=== PATIENT | male | born 1935 | race Caucasian/White ===

== ENCOUNTER 2017-11-10 10:07 | Inpatient (IN) | payer MEDICARE ==
[~2017-11-10] VITALS: Ht 177.8 cm; Wt 94.5 kg
[2017-11-10] VITALS (14 sets, daily range): BP systolic 94–125; BP diastolic 66–80
[~2017-11-10 10:07] MED LIST: ASPERCREME 10% EX; BAYER ASPIRIN325 MG PO; BIOTIN FORTE5 MG PO; BISAC-EVAC5 MG OR; BL POTASSIUM99 MG OR; BORON3 MG PO; CHILD ASA81 MG OR; CHROMIUM OR; COUMADIN5 MG PO; DEPO-MEDROL80 MG/ML IM; DIGOXIN0.25 MG PO; FLEXERIL5 M1 PO; FOLIC ACID1 MG PO; GLIMEPIRIDE2 MG PO; GLYB/METFO5 MG/500 M OR; HYDROCHLOROT25 MG PO; HYDROCO/APAP1 TA9 PO; INOSITOL650 MG OR; JANUVIA100 MG PO; JANUVIA50 MG OR; KETOROLAC60 MG/2 ML IM; LANTUS SOLOSTAR SC; LANTUS100 MG/ML; LISINOPRIL10 MG PO; LISINOPRIL20 MG PO; LISINOPRIL40 MG PO; LOPRESSOR 550 MG/TAB PO; LOPRESSOR25 MG PO; LORCET 5-325 MG1 TAB PO; LUMITENE30 MG OR; MAGNESIUM500 MG OR; MEDDOSEPAK PO; METAMUCIL1.7 G1 OR; METFORMIN1000 MG PO; METFORMIN500 MG PO; METOPROLOL25 M1 OR; METOPROLOL50 MG PO; MIRALAX3350 NF PO; MOLYBDENUM OR; MULTIVITAMI1 PO; NIACIN250 M1 OR; PERCOCET 5/321 COMBO PO; PERCOCET1 TA4 PO; PLAVIX75 MG OR; PRILOSEC20 MG PO; SOLU-MEDROL125 MG IM; STOOL SOFTNR100 M2 PO; VITAMIN B-12100 MCG OR; VITAMIN B-122500 MCG SL; VITAMIN B-1250 MG OR; VITAMIN B6250 MG OR; VITAMIN D31000 UNIT OR; ZOCOR40 MG OR
--- NOTE | 2017-11-10 10:10 | NUR ---
Pt ambulated to rooM # 15 with slow steady gait. Refused w/c. Pt placed on cardiac, SA02, and BP monitors.
[2017-11-10] MEDS ORDERED: ADULT ASPIRIN R81 MG PO (10:24)
[2017-11-10] MEDS ORDERED: LANTUS100 UNIT/M SC (10:27)
[2017-11-10] MEDS ORDERED: ATORVASTATIN CA20 MG PO (10:28)
[2017-11-10] MEDS ORDERED: FERRAPLUS 90 PO (10:29)
--- NOTE | 2017-11-10 10:29 | NUR ---
PT C/O IRREG HR. SENT OVER AFTER APPT WITH [facility]. DENIES PAIN. DENIES SOB. STATES HE RAN OUT OF MEDS BUT STARTED THEM BACK TODAY. STATES [facility]O CHANGED ALMOST ALL MEDS TODAY AT OFFICE VISIT.
[2017-11-10] MEDS ORDERED: MAGNESIUM 250 M1 TAB PO (10:30)
--- NOTE | 2017-11-10 10:45 | NUR ---
CONSULTED DR GONZÁLES TO VERIFY MEDICATION ORDERED. EDP STATED TO GO AHEAD AND GIVE LOPRESSOR 2.5MG WITH BP OF 116/75 & HR OF 139. OTHER 2.5 MG HELD UNTIL VERIFY PTS HR/BP WNL.
[2017-11-10 10:46] LABS: HEMATOCRIT 40.1 % (39.0-50.0); HEMOGLOBIN 13.5 g/dl (14.0-18.0); IMMATURE GRANULOCYTES 0.2 % (0.0-1.0); MEAN CELL VOLUME 97.6 fL CALC (80.0-100.0); MEAN CORPUSCULAR HGB 32.8 pG CALC (26.0-32.0); MEAN CORPUSCULAR HGB CONC 33.7 g/L CALC (32.0-36.0); NEUT# 2.63 thou/uL (1.82-7.42); RED BLOOD COUNT 4.11 mill/uL (4.70-6.10)
[2017-11-10 11:03] LABS: BILIRUBIN, TOTAL 0.5 mg/dL (0.0-1.4); CREATININE 1.6 mg/dL (0.7-1.3); TOTAL PROTEIN 7.6 g/dL (6.3-8.2)
[2017-11-10 11:13] LABS: POTASSIUM 5.2 mmol/l (3.5-5.1)
--- NOTE | 2017-11-10 11:14 | NUR ---
2.5MG LOPRESSOR GIVEN. HR 137, BP 109/67
--- NOTE | 2017-11-10 11:53 | NUR ---
2ND IV ESTABLISHED. PT MEDICATED. PT DENIES SRUTHI. DENIES SOB. IN ROOM ADVISING PT/ OF TEST RESULTS & POC
--- NOTE | 2017-11-10 12:03 | NUR ---
HAS PTS WATCH. PT FIGHTING ON THE PHONE WITH HIS BANK.
--- NOTE | 2017-11-10 12:48 | NUR ---
CALLED PHARMACY TO REVIEW CARDIZEM ORDER.
--- NOTE | 2017-11-10 13:41 | NUR ---
WAITING ON DR STEIN TO COME SEE PT IN ER.
--- NOTE | 2017-11-10 13:55 | NUR ---
DR STEIN @ BEDSIDE WITH PT/
--- NOTE | 2017-11-10 14:13 | NUR ---
PT PLEASANT TOWARD STAFF. MOM @BEDSIDE. BOTTLE OF WATER GIVEN W/INCOME TAX PREPARER PERMISSION TO ENCOURAGE UA SAMPLE.
--- NOTE | 2017-11-10 14:34 | NUR ---
WENT HOME TO EAT. PT OK WITH HOLDING IN THE ER UNTIL 1700.
--- NOTE | 2017-11-10 14:35 | NUR ---
DR GRANADOS @BEDSIDE ASSESSING PT
--- NOTE | 2017-11-10 15:50 | NUR ---
AMIODORONE MAINTENANCE STARTED AT 1MG/MIN. PT EDUCATED ON MEDICATION. PT IS KEEPING A LIST OF CARDIAC MEDS GIVEN. STILL DENIES PAIN.
--- NOTE | 2017-11-10 16:40 | NUR ---
PT TRANSFERED UP TO ICU 7 BY WC WITH TELE IN STABLE CONDITION. RN IN ROOM. BEDSIDE REPORT GIVEN TO RAYNA.
--- NOTE | 2017-11-10 16:45 | NUR ---
PT ADMITTED TO ICU BED 7 STRETCHER, PT ALERT AND ORIENTED STOOD OFF STRETHER ONTO SCALE THEN INTO BED WITH STAND BY ASSIST, ADMISSION ASSESSMENT CMPLETED, AMIODARONE GTT INFUSING AT AT 1MG/MIN INITIATED IN ER, TELE READING A FIB/FLUTTER RATE 120-130'S, NO EDEMA NOTED PT AFEBRILE AND BP STABLE, AND SAW PT IN ER. ORIENTED TO ROOM AND UNIT, CALL FIELD WITHIN REACH AND ALL MONITORING EQUIPMENT EXPLAINED PRIOR TO APPLICATION, WILL CONTINUE TO MONITOR.
--- NOTE | 2017-11-10 17:30 | NUR ---
IN HIGHFOWLERS TOLERATING 1800ADA SORAIDA DIET, A/O X3, RESPIRATIONS EVEN AND UNLABORED ON RA. AMIODARONE GTT INFUSING AT 33.3ML/HR. HR [address] ON MONITOR, B/P 116/70. DENIES PAIN. CALL LIGHT IN REACH.
--- NOTE | 2017-11-10 19:30 | NUR ---
OOB TO BSC RESULTING IN LARGE LOOSE BROWN BM, BACK TO BED. CALL LIGHT IN REACH.
--- NOTE | 2017-11-10 21:54 | NUR ---
AMIODARONE GTT RATE REDUCED TO 16.7ML/HR. PT RESTING ON RIGHT SIDE WITH EYES CLOSED, RESPIRATIONS EVEN AND UNLABORED. CALL LIGHT IN REACH.
--- NOTE | 2017-11-10 23:15 | NUR ---
TROPONIN DRAWN AT THIS TIME BY PRINTING GREY CLOTH TENDER, TOLERATED WELL.
[2017-11-11] VITALS (18 sets, daily range): BP systolic 93–143; BP diastolic 52–90
--- NOTE | 2017-11-11 02:00 | NUR ---
RESTING WITH EYES CLOSED, RESPIRATIONS EVEN AND UNLABORED ON RA. AMIODARONE GTT INFUSING TO RW AT 16.7ML/HR, HR 127. DENIES PAIN OR DISCOMFORT.
--- NOTE | 2017-11-11 04:20 | NUR ---
MORNING BLOOD WORK DRAWN BY SUPPORT DIRECTOR, TOLERATED WELL.
[2017-11-11 05:21] LABS: HEMATOCRIT 37.6 % (39.0-50.0); HEMOGLOBIN 12.6 g/dl (14.0-18.0); MEAN CELL VOLUME 98.2 fL CALC (80.0-100.0); MEAN CORPUSCULAR HGB 32.9 pG CALC (26.0-32.0); MEAN CORPUSCULAR HGB CONC 33.5 g/L CALC (32.0-36.0); RED BLOOD COUNT 3.83 mill/uL (4.70-6.10); RED CELL DISTRI WIDTH 11.9 % (11.5-15.5)
[2017-11-11 05:26] LABS: BUN 21 mg/dL (8-23); BUN/CREATININE RATIO 16 (12-20 (CALC)); CARBON DIOXIDE 25 mmol/l (22-30); CHLORIDE 107 mmol/l (95-108); CREATININE 1.3 mg/dL (0.7-1.3); GFR 53 ML/MIN (>=60 (CALC)); GFR FOR AFR.AMER. > 60 ML/MIN (>=60 (CALC)); MAGNESIUM 1.5 mg/dL (1.6-2.3); SODIUM 140 mmol/l (137-146)
[2017-11-11 05:29] LABS: ANION GAP 13 (6-22 (CALC)); POTASSIUM 5.2 mmol/l (3.5-5.1)
--- NOTE | 2017-11-11 07:10 | NUR ---
PT LAYING IN BED RESTING WITH EYES CLOSED, PT VERBALIZED HE WAS TIRED FROM NOT SLEEPING MUCH LAST NIGHT, PT A & O X3, PERRL, HR 128, RESP. 18, BP 118/77, O2 95% ON RA, LUNG SOUNDS CLEAR IN ALL [place], ACTIVE BOWEL SOUNDS, STRONG RADIAL AND PEDAL PULSES, 18G LFA IV WITH AMIODARONE INFUSING AT PRESCRIBED RATE, 20G RW IV, SALINE LOCKED, NO REDNESS OR DRAINAGE AT IV SITES, AM ASSESSMENT COMPLETE, SEE INTERVENTIONS, SAFETY MEASURES REINFORCED, CALL FIELD WITHIN REACH
--- NOTE | 2017-11-11 07:35 | NUR ---
SETUP ASSISTANCE PROVIDED WITH KENDY GARRISON
--- NOTE | 2017-11-11 08:38 | NUR ---
PT ASSISTED TO THE BSC, PT AMBULATED WITH A SLOW UNSTEADY GAIT, CALL FIELD WITHIN REACH
--- NOTE | 2017-11-11 09:37 | NUR ---
DR ARAUZ AT BEDSIDE DISCUSSING PLAN OF CARE
--- NOTE | 2017-11-11 10:44 | NUR ---
PT LAYING IN BED RESTING WITH EYES CLOSED, AROUSES EASILY TO VERBAL STIMULI, NO S/S OF DISTRESS, CALL FIELD WITHIN REACH
--- NOTE | 2017-11-11 11:10 | NUR ---
PT SITTING UP WATCHING TV, VERBALIZES NO COMPLAINTS, CALL FIELD WITHIN REACH
--- NOTE | 2017-11-11 11:30 | NUR ---
SETUP ASSISTANCE PROVIDED WITH LUNCH TRAY
--- NOTE | 2017-11-11 12:10 | NUR ---
PT SITTING ON THE SIDE OF THE BED BRUSHING HIS TEETH, PT DECLINED SETUP UP ASSISTANCE TO GET WASHED UP AT THIS TIME, PT REMINDED TO CALL FOR ASSISTANCE, CALL FIELD WITHIN REACH
--- NOTE | 2017-11-11 13:51 | NUR ---
PT RESTING WITH EYES CLOSED, AROUSES EASILY TO VERBAL STIMULI, CALL FIELD WITHIN REACH
--- NOTE | 2017-11-11 14:40 | NUR ---
PT LAYING IN BED WATCHING TV, VERBALIZES NO COMPLAINTS, CALL FIELD WITHIN REACH
--- NOTE | 2017-11-11 15:01 | NUR ---
PT TALKING ON PORTABLE PHONE, NO S/S OF DISTRESS, CALL FIELD WITHIN REACH
--- NOTE | 2017-11-11 15:35 | NUR ---
AMIODARONE TITRATED OFF
--- NOTE | 2017-11-11 15:50 | NUR ---
PT ASSISTED WITH GETTING TO THE BSC, PT AMBULATED WITH A SLOW UNSTEADY GAIT
--- NOTE | 2017-11-11 17:35 | NUR ---
SETUP ASSISTANCE PROVIDED WITH PM MEAL
--- NOTE | 2017-11-11 19:30 | NUR ---
awake. denies c/o. bus driver/monitor shows a flutter. #18 lfa & #20 rt wrist saline locks. po fluids taken well. voids per bsc. fall precautions cont.
--- NOTE | 2017-11-11 22:00 | NUR ---
eyes closed. no distress. tank car repairer shows a flutter. hr fluctuates from 70's to 120's with activity.
[2017-11-12] VITALS (9 sets, daily range): BP systolic 105–147; BP diastolic 65–98
--- NOTE | 2017-11-12 00:01 | NUR ---
eyes closed. no distress. conveyor monitor shows a flutter.
--- NOTE | 2017-11-12 02:00 | NUR ---
resting quietly. resps even & unlabored. no apparent distress.
--- NOTE | 2017-11-12 04:10 | NUR ---
lab here. blood drawn.
--- NOTE | 2017-11-12 04:15 | NUR ---
bp 170/94. apresoline 10mg ivp given.
--- NOTE | 2017-11-12 04:30 | NUR ---
bp 144/82.
[2017-11-12 05:54] LABS: ANION GAP 15 (6-22 (CALC)); BUN 19 mg/dL (8-23); BUN/CREATININE RATIO 14 (12-20 (CALC)); CARBON DIOXIDE 24 mmol/l (22-30); CHLORIDE 106 mmol/l (95-108); CREATININE 1.3 mg/dL (0.7-1.3); GFR 53 ML/MIN (>=60 (CALC)); GFR FOR AFR.AMER. > 60 ML/MIN (>=60 (CALC)); POTASSIUM 4.9 mmol/l (3.5-5.1); SODIUM 141 mmol/l (137-146)
[2017-11-12 06:08] LABS: HEMATOCRIT 39.5 % (39.0-50.0); HEMOGLOBIN 13.3 g/dl (14.0-18.0); IMMATURE GRANULOCYTES 0.1 % (0.0-1.0); MEAN CELL VOLUME 98.3 fL CALC (80.0-100.0); MEAN CORPUSCULAR HGB 33.1 pG CALC (26.0-32.0); MEAN CORPUSCULAR HGB CONC 33.7 g/L CALC (32.0-36.0); NEUT# 3.72 thou/uL (1.82-7.42); RED BLOOD COUNT 4.02 mill/uL (4.70-6.10); RED CELL DISTRI WIDTH 11.8 % (11.5-15.5)
--- NOTE | 2017-11-12 06:23 | NUR ---
hr 130's. 0900 lopressor & amiodarone given.
--- NOTE | 2017-11-12 07:05 | NUR ---
PT LAYING IN BED WATCHING TV, VERBALIZES NO COMPLAINTS, A & O X3, PERRL, HR 128, RESP. 18, BP 109/73, 97% ON RA, LUNG SOUNDS CLEAR IN ALL [place], ACTIVE BOWEL SOUNDS, STRONG RADIAL AND PEDAL PULSES, 20G RW IV, SALINE LOCKED, 18G LFA IV, SALINE LOCKED, NO REDNESS OR DRAINAGE AT EITHER SITE, AM ASSESSMENT COMPLETE, SEE INTERVENTIONS, SAFETY MEASURES REINFORCED, CALL FIELD WITHIN REACH
--- NOTE | 2017-11-12 07:30 | NUR ---
SETUP ASSISTANCE PROVIDED WITH KENDY GARRISON
--- NOTE | 2017-11-12 08:20 | NUR ---
PT SITTING UP IN BED WATCHING TV, NO S/S OF DISTRESS, CALL FIELD WITHIN REACH
--- NOTE | 2017-11-12 11:22 | NUR ---
PT CAME FROM ICU VIA WHEELCHAIR BY CORE SHAPER TOP. CORE SHAPER TOP IN ROOM FOR STAND BY ASSIST TO SCALE AND THEN TO BED.
--- NOTE | 2017-11-12 12:00 | NUR ---
PT IS SITTING IN RECLINER. ASSESSMENT DONE. RESPS EVEN AND UNLABORED. PT DENIES PAIN AT THIS TIME. SAFETY PRECAUTIONS REINFORCED AND CALL LIGHT IN REACH.
--- NOTE | 2017-11-12 15:45 | NUR ---
JOHAN FROM ED CALLED RE: PT HEART RATE WAS 130 AND THEN WENT DOWN TO 64. AT THAT TIME I WAS WITH PT SPEAKING TO HIM AND HE WAS LAUGHING. PT DENIED PAIN AND NEEDS. RESPS EVEN AND UNLABORED. TELE IN PLACE. PT STATED THAT HE HAS BEEN PASSING GAS. CALL LIGHT IN REACH.
--- NOTE | 2017-11-12 19:59 | NUR ---
PT OUT OF BED SITTING IN BEDSIDE CHAIR WATCHING TV. RESP EVEN AND UNLABORED. LUNGS CLEAR BILAT. TELE IN PLACE. ABD DISTENDED, SOFT; ACTIVE BOWEL SOUNDS. PT REPORTS HAVING 2 BMS TODAY. PEDAL PULSES PALPATED BILAT. IV LFA PATENT; FLUSHED WITHOUT DIFFICULTY. IV RW PATENT; FLUSHED WITHOUT DIFFICULTY. PT DENIES PAIN OR DISCOMFORT. SAFETY PRECAUTIONS REINFORCED. FREQUENT ROUNDS MADE. CALL LIGHT WITHIN REACH.
[2017-11-13 00:05] VITALS: BP 113/69
--- NOTE | 2017-11-13 00:05 | NUR ---
PT WOKE UPON ENTRY, PT DENIES ANY PAIN OR DISCOMFORT. RESP EVEN AND UNLABORED. TELE IN PLACE. CALL LIGHT WITHIN REACH.
--- NOTE | 2017-11-13 00:50 | NUR ---
MATERIAL PREPARATION WORKER UNABLE TO LABEL RHYTHM ON TELE MONITOR, EKG OBTAINED.
--- NOTE | 2017-11-13 04:00 | NUR ---
RESP EVEN AND UNLABORED, NO DISCOMFORT NOTED. ASSESSMENT UNCHANGED. TELE IN PLACE. CALL LIGHT WITHIN REACH.
[2017-11-13 04:50] VITALS: BP 122/70
--- NOTE | 2017-11-13 07:22 | NUR ---
REPORT RECEIVED FROM EMERSON SAINZ. PT SLEEPING. CALL LIGHT WITHIN REACH.
[2017-11-13 09:03] VITALS: BP 123/64
[2017-11-13] MEDS ORDERED: LOPRESSOR 550 MG/TAB PO (10:35)
[2017-11-13] MEDS ORDERED: CORDARONE/200 MG/TAB PO (10:35)
[2017-11-13] MEDS ORDERED: ELIQUIS5 MG PO (10:36)
[2017-11-13 11:33] VITALS: BP 155/79
== END 2017-11-13 13:49 | DRG 281 ==
LOC: ED 10:07 → ED-I 11:37 → ED 14:46 → ICU 14:47 → MS2 11-12 11:20
PROVIDERS: Emergency Medicine; Nurse Practitioner Family; ADMIT Internal Medicine; ATTEND Internal Medicine
DX: I48.0 Paroxysmal atrial fibrillation (principal); I21.A1 Myocardial infarction type 2; N17.9 Acute kidney failure, unspecified; E11.22 Type 2 diabetes mellitus with diabetic chronic kidney disease; E86.0 Dehydration; I48.92 Unspecified atrial flutter; I13.10 Hypertensive heart and chronic kidney disease without heart failure, with stage 1 through stage 4 chronic kidney disease, or unspecified chronic kidney disease; N18.3 Chronic kidney disease, stage 3 (moderate); E78.5 Hyperlipidemia, unspecified; Z95.1 Presence of aortocoronary bypass graft; G47.33 Obstructive sleep apnea (adult) (pediatric); I25.10 Atherosclerotic heart disease of native coronary artery without angina pectoris; Z95.5 Presence of coronary angioplasty implant and graft; Z86.73 Personal history of transient ischemic attack (TIA), and cerebral infarction without residual deficits; Z95.0 Presence of cardiac pacemaker; Z91.14 Patient's other noncompliance with medication regimen; Z79.4 Long term (current) use of insulin
CPT/HCPCS: J0282; J1650; J3475

== ENCOUNTER → 2018-03-21 | Outpatient (REF) | payer MEDICARE ==
[~2018-03-21] MED LIST changes: +ADULT ASPIRIN R81 MG PO; +ATORVASTATIN CA20 MG PO; +CORDARONE/200 MG/TAB PO; +ELIQUIS5 MG PO; +FERRAPLUS 90 PO; +LANTUS100 UNIT/M SC; +MAGNESIUM 250 M1 TAB PO
[2018-03-21 08:21] LABS: HEMATOCRIT 38.5 % (39.0-50.0); IMMATURE GRANULOCYTES 0.2 % (0.0-5.0); MEAN CORPUSCULAR HGB 33.1 pG CALC (26.0-32.0); MEAN CORPUSCULAR HGB CONC 33.8 g/L CALC (32.0-36.0); NEUT# 2.41 thou/uL (1.82-7.42); RED BLOOD COUNT 3.93 mill/uL (4.70-6.10); RED CELL DISTRI WIDTH 12.3 % (11.5-15.5)
[2018-03-21 08:45] LABS: BILIRUBIN, TOTAL 0.4 mg/dL (0.0-1.4); CHOLESTEROL HDL RATIO 3.6 (<4.4 (CALC)); CREATININE 1.5 mg/dL (0.7-1.3); POTASSIUM 5.1 mmol/l (3.5-5.1); TOTAL PROTEIN 7.6 g/dL (6.3-8.2)
== END | disposition home or self-care (01) ==
LOC: LAB 07:35
PROVIDERS: ATTEND Internal Medicine
DX: E11.65 Type 2 diabetes mellitus with hyperglycemia (principal); I10 Essential (primary) hypertension; I48.0 Paroxysmal atrial fibrillation; E78.49 Other hyperlipidemia

== ENCOUNTER → 2018-03-23 | Outpatient (REF) | payer MEDICARE ==
[2018-03-23 10:49] LABS: URINE BILIRUBIN - DIPSTICK NEGATIVE (NEGATIVE); URINE BLOOD DIPSTICK NEGATIVE (NEGATIVE); URINE COLOR YELLOW; URINE GLUCOSE - DIPSTICK NEGATIVE (NEGATIVE); URINE KETONE NEGATIVE (NEGATIVE); URINE LEUK ESTERASE TRACE (NEGATIVE); URINE NITRITE - DIPSTICK NEGATIVE (Negative); URINE PH 5.5 (4.5-8.0); URINE PROTEIN - DIPSTICK NEGATIVE (NEG-TRACE); URINE SPECIFIC GRAVITY 1.015; URINE UROBILINOGEN - DIPSTICK 0.2 E.U./dL (0.2)
[2018-03-23 11:00] LABS: URINE CLARITY CLEAR
== END | disposition home or self-care (01) ==
LOC: LABSPEC 10:27
PROVIDERS: ATTEND Internal Medicine
DX: E11.65 Type 2 diabetes mellitus with hyperglycemia (principal); E78.49 Other hyperlipidemia; I10 Essential (primary) hypertension; I48.0 Paroxysmal atrial fibrillation

== ENCOUNTER 2018-04-13 07:24 | Day surgery (SDC) | payer MEDICARE ==
[~2018-04-13] VITALS: Ht 177.8 cm; Wt 95.3 kg
[~2018-04-13 07:24] MED LIST changes: +ASPIRIN325 MG PO
[2018-04-13 10:07] VITALS: BP 123/76
== END 2018-04-13 10:27 | disposition home or self-care (01) ==
LOC: ENDO 07:24
PROVIDERS: ATTEND Internal Medicine Gastroenterology
PROC: 0D758ZZ Dilation of Esophagus, Via Natural or Artificial Opening Endoscopic (ICD-10-PCS; principal; 2018-04-13)
PROC: 0DB98ZX Excision of Duodenum, Via Natural or Artificial Opening Endoscopic, Diagnostic (ICD-10-PCS; 2018-04-13)
PROC: 0DB48ZX Excision of Esophagogastric Junction, Via Natural or Artificial Opening Endoscopic, Diagnostic (ICD-10-PCS; 2018-04-13)
DX: K22.2 Esophageal obstruction (principal); K29.70 Gastritis, unspecified, without bleeding; K29.80 Duodenitis without bleeding; K22.70 Barrett's esophagus without dysplasia; Q39.8 Other congenital malformations of esophagus; K31.89 Other diseases of stomach and duodenum; K52.9 Noninfective gastroenteritis and colitis, unspecified; I10 Essential (primary) hypertension; E11.9 Type 2 diabetes mellitus without complications; I25.10 Atherosclerotic heart disease of native coronary artery without angina pectoris; E78.00 Pure hypercholesterolemia, unspecified; G47.30 Sleep apnea, unspecified; Z86.73 Personal history of transient ischemic attack (TIA), and cerebral infarction without residual deficits; Z95.0 Presence of cardiac pacemaker; Z95.1 Presence of aortocoronary bypass graft; Z95.5 Presence of coronary angioplasty implant and graft

== ENCOUNTER → 2018-08-03 | Outpatient (REF) | payer MEDICARE ==
[2018-08-03 07:45] LABS: URINE BILIRUBIN - DIPSTICK NEGATIVE (NEGATIVE); URINE BLOOD DIPSTICK NEGATIVE (NEGATIVE); URINE COLOR YELLOW; URINE GLUCOSE - DIPSTICK NEGATIVE (NEGATIVE); URINE KETONE NEGATIVE (NEGATIVE); URINE LEUK ESTERASE NEGATIVE (NEGATIVE); URINE NITRITE - DIPSTICK NEGATIVE (Negative); URINE PROTEIN - DIPSTICK NEGATIVE (NEG-TRACE); URINE UROBILINOGEN - DIPSTICK 0.2 E.U./dL (0.2)
[2018-08-03 08:12] LABS: HEMATOCRIT 37.3 % (39.0-50.0); HEMOGLOBIN 12.7 g/dl (14.0-18.0); MEAN CELL VOLUME 98.2 fL CALC (80.0-100.0); MEAN CORPUSCULAR HGB 33.4 pG CALC (26.0-32.0); RED BLOOD COUNT 3.8 mill/uL (4.70-6.10); RED CELL DISTRI WIDTH 12.4 % (11.5-15.5)
[2018-08-03 08:33] LABS: ALBUMIN 3.9 g/dL (3.2-5.0); BILIRUBIN, TOTAL 0.5 mg/dL (0.0-1.4); CHOLESTEROL HDL RATIO 4.1 (<4.4 (CALC)); CREATININE 1.5 mg/dL (0.7-1.3); POTASSIUM 4.8 mmol/l (3.5-5.1); TOTAL PROTEIN 7.3 g/dL (6.3-8.2)
== END | disposition home or self-care (01) ==
LOC: LAB 07:00
PROVIDERS: ATTEND Internal Medicine
DX: E03.9 Hypothyroidism, unspecified (principal); E11.69 Type 2 diabetes mellitus with other specified complication; I48.0 Paroxysmal atrial fibrillation; N18.3 Chronic kidney disease, stage 3 (moderate); Z95.0 Presence of cardiac pacemaker; Z12.5 Encounter for screening for malignant neoplasm of prostate

== ENCOUNTER 2019-08-26 | Emergency (ER) | payer MEDICARE ==
[2019-08-26 08:07] LABS: HEMATOCRIT 34.1 % (39.0-50.0); HEMOGLOBIN 11.1 g/dl (14.0-18.0); IMMATURE GRANULOCYTES 0.5 % (0.0-5.0); MEAN CORPUSCULAR HGB 32.6 pG CALC (26.0-32.0); MEAN CORPUSCULAR HGB CONC 32.6 g/L CALC (32.0-36.0); NEUT# 3.99 thou/uL (1.82-7.42); RED BLOOD COUNT 3.41 mill/uL (4.70-6.10); RED CELL DISTRI WIDTH 13.2 % (11.5-15.5)
[2019-08-26 08:22] LABS: ALBUMIN 4.1 g/dL (3.2-5.0); ALKALINE PHOSPHATASE 74 u/l (38-126); ANION GAP 17 (6-22 (CALC)); BILIRUBIN, TOTAL 0.4 mg/dL (0.0-1.4); BUN 24 mg/dL (8-23); BUN/CREATININE RATIO 15 (12-20 (CALC)); CARBON DIOXIDE 19 mmol/l (22-30); CHLORIDE 111 mmol/l (95-108); CREATININE 1.7 mg/dL (0.7-1.3); GFR 38 ML/MIN (>=60 (CALC)); GFR FOR AFR.AMER. 47 ML/MIN (>=60 (CALC)); POTASSIUM 4.6 mmol/l (3.5-5.1); SGOT/AST 26 u/l (19-48); SODIUM 142 mmol/l (137-146); TOTAL PROTEIN 8.6 g/dL (6.3-8.2)
[2019-08-26 08:25] LABS: ACT PARTIAL THROMBO TIME 20.3 SECONDS (20.0-32.5)
[2019-08-26] MEDS ORDERED: VITAMIN D31000 UNI1 PO (09:04)
[2019-08-26] MEDS ORDERED: LEVOTHYROXIN25 MC1 PO (09:04)
== END 2019-08-26 09:28 | disposition home or self-care (01) ==
DX: I47.1 Supraventricular tachycardia (principal); E11.9 Type 2 diabetes mellitus without complications; I10 Essential (primary) hypertension; I48.91 Unspecified atrial fibrillation; T50.916A Underdosing of multiple unspecified drugs, medicaments and biological substances, initial encounter; Z91.120 Patient's intentional underdosing of medication regimen due to financial hardship; Z79.4 Long term (current) use of insulin; Z86.73 Personal history of transient ischemic attack (TIA), and cerebral infarction without residual deficits
CPT/HCPCS: J0153

== ENCOUNTER 2020-04-18 03:36 | Emergency (ER) | payer MEDICARE ==
[~2020-04-18] VITALS: Ht 177.8 cm; Wt 91.0 kg
[~2020-04-18 03:36] MED LIST changes: +LEVOTHYROXIN25 MC1 PO; +VITAMIN D31000 UNI1 PO
[2020-04-18 04:03] LABS: HEMOGLOBIN 7.5 g/dl (14.0-18.0); IMMATURE GRANULOCYTES 0.2 % (0.0-5.0); MEAN CELL VOLUME 97.9 fL CALC (80.0-100.0); MEAN CORPUSCULAR HGB 31.6 pG CALC (26.0-32.0); MEAN CORPUSCULAR HGB CONC 32.3 g/dL CAL (32.0-36.0); NEUT# 3.04 thou/uL (1.82-7.42); RED BLOOD COUNT 2.37 mill/uL (4.70-6.10); RED CELL DISTRI WIDTH 14.3 % (11.5-15.5)
[2020-04-18 04:08] LABS: HEMATOCRIT 23.2 % (39.0-50.0)
[2020-04-18] MEDS ORDERED: VICTOZA18 MG/3 ML SC (04:10)
[2020-04-18] MEDS ORDERED: OMEPRAZOLE DR40 MG PO (04:16)
[2020-04-18] MEDS ORDERED: ELIQUIS2.5 MG PO (04:17)
[2020-04-18] MEDS ORDERED: NORVASC5 M1 PO (04:18)
[2020-04-18] MEDS ORDERED: MAGNESIUM 400 M1 TAB PO (04:19)
[2020-04-18] MEDS ORDERED: B121000 MC1 PO (04:20)
[2020-04-18 04:27] LABS: ALBUMIN 3.6 g/dL (3.2-5.0); ALKALINE PHOSPHATASE 86 u/l (38-126); BILIRUBIN, TOTAL 0.3 mg/dL (0.0-1.4); CHLORIDE 107 mmol/l (95-108); SGOT/AST 21 u/l (19-48); SODIUM 138 mmol/l (137-146); TOTAL PROTEIN 10.9 g/dL (6.3-8.2)
[2020-04-18 04:29] LABS: BUN 62 mg/dL (8-23)
[2020-04-18 04:35] LABS: ANION GAP 20 (6-22 (CALC)); BUN/CREATININE RATIO 6 (12-20 (CALC)); CARBON DIOXIDE 17 mmol/l (22-30); CREATININE 10.9 mg/dL (0.7-1.3); GFR 5 ML/MIN (>=60 (CALC)); GFR FOR AFR.AMER. 5 ML/MIN (>=60 (CALC)); POTASSIUM 5.7 mmol/l (3.5-5.1)
[2020-04-18 04:39] LABS: MYOGLOBIN 316 ng/mL (0 - 121)
[2020-04-18 06:11] VITALS: BP 190/77
== END 2020-04-18 06:11 | disposition short-term general hospital (02) ==
LOC: ED 03:36
PROVIDERS: Emergency Medicine
DX: E11.649 Type 2 diabetes mellitus with hypoglycemia without coma (principal); N17.9 Acute kidney failure, unspecified; D64.9 Anemia, unspecified; I10 Essential (primary) hypertension; I48.91 Unspecified atrial fibrillation; Z86.73 Personal history of transient ischemic attack (TIA), and cerebral infarction without residual deficits; Z79.4 Long term (current) use of insulin; Z95.1 Presence of aortocoronary bypass graft; Z95.0 Presence of cardiac pacemaker; Z79.899 Other long term (current) drug therapy; Z20.828 Contact with and (suspected) exposure to other viral communicable diseases

== ENCOUNTER 2020-05-10 16:53 | Emergency (ER) | payer MEDICARE ==
[~2020-05-10] VITALS: Ht 177.8 cm; Wt 75.0 kg
[~2020-05-10 16:53] MED LIST changes: +B121000 MC1 PO; +ELIQUIS2.5 MG PO; +MAGNESIUM 400 M1 TAB PO; +NORVASC5 M1 PO; +OMEPRAZOLE DR40 MG PO; +VICTOZA18 MG/3 ML SC
[2020-05-10 17:13] LABS: HEMOGLOBIN 9.3 g/dl (14.0-18.0); IMMATURE GRANULOCYTES 0.3 % (0.0-5.0); MEAN CELL VOLUME 92.4 fL CALC (80.0-100.0); MEAN CORPUSCULAR HGB 29.3 pG CALC (26.0-32.0); MEAN CORPUSCULAR HGB CONC 31.7 g/dL CAL (32.0-36.0); NEUT# 1.96 thou/uL (1.82-7.42); RED BLOOD COUNT 3.17 mill/uL (4.70-6.10); RED CELL DISTRI WIDTH 17.2 % (11.5-15.5)
[2020-05-10 17:25] LABS: ALBUMIN 3.3 g/dL (3.2-5.0); CARBON DIOXIDE 20 mmol/l (22-30); CHLORIDE 109 mmol/l (95-108); SODIUM 135 mmol/l (137-146); TOTAL PROTEIN 9.3 g/dL (6.3-8.2)
[2020-05-10 17:28] LABS: HEMATOCRIT 29.3 % (39.0-50.0)
[2020-05-10 17:29] LABS: ALKALINE PHOSPHATASE 281 u/l (38-126); ANION GAP 10 (6-22 (CALC)); BILIRUBIN, TOTAL 0.7 mg/dL (0.0-1.4); BUN 14 mg/dL (8-23); BUN/CREATININE RATIO 7 (12-20 (CALC)); GFR 32 ML/MIN (>=60 (CALC)); GFR FOR AFR.AMER. 39 ML/MIN (>=60 (CALC)); POTASSIUM 4.4 mmol/l (3.5-5.1); SGOT/AST 53 u/l (19-48)
[2020-05-10 19:28] VITALS: BP 125/67
== END 2020-05-10 20:01 | disposition home or self-care (01) ==
LOC: ED 16:53
DX: E11.649 Type 2 diabetes mellitus with hypoglycemia without coma (principal); E11.22 Type 2 diabetes mellitus with diabetic chronic kidney disease; I12.0 Hypertensive chronic kidney disease with stage 5 chronic kidney disease or end stage renal disease; N18.6 End stage renal disease; Z99.2 Dependence on renal dialysis; I48.91 Unspecified atrial fibrillation; Z86.73 Personal history of transient ischemic attack (TIA), and cerebral infarction without residual deficits; Z79.4 Long term (current) use of insulin

== ENCOUNTER 2020-06-13 06:05 | Inpatient (IN) | payer MEDICARE ==
[~2020-06-13] VITALS: Ht 167.6 cm; Wt 81.7 kg
[~2020-06-13 06:05] MED LIST changes: +AMLODIPINE BESYL5 MG PO; +ASPIRIN81 MG PO; +HEMADY20 MG PO; +LANTUS SOL100 UNIT/M SC; +LANTUS100 UNIT/M; +LEVOTHYROXIN50 MCG PO; +LIPITOR20 M1 PO; +METOPROL TAR25 MG PO
--- NOTE | 2020-06-13 06:05 | NUR ---
PT TO ROOM 6 BY EMS FOR GENERAL WEAKNESS. 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 IV TO LAC.
[2020-06-13 06:49] LABS: HEMATOCRIT 26.8 % (39.0-50.0); HEMOGLOBIN 8.5 g/dl (14.0-18.0); IMMATURE GRANULOCYTES 0.9 % (0.0-5.0); MEAN CELL VOLUME 92.4 fL CALC (80.0-100.0); MEAN CORPUSCULAR HGB 29.3 pG CALC (26.0-32.0); MEAN CORPUSCULAR HGB CONC 31.7 g/dL CAL (32.0-36.0); NEUT# 3.74 thou/uL (1.82-7.42); RED BLOOD COUNT 2.9 mill/uL (4.70-6.10); RED CELL DISTRI WIDTH 16.4 % (11.5-15.5)
--- NOTE | 2020-06-13 07:00 | NUR ---
REPORT GIVEN TO FLOR FRAGA
[2020-06-13 07:02] LABS: ALBUMIN 3.6 g/dL (3.2-5.0); ALKALINE PHOSPHATASE 105 u/l (38-126); BUN 47 mg/dL (8-23); CHLORIDE 107 mmol/l (95-108); ETHYL ALCOHOL 0 mg/dl (0-30); LIPASE 314 u/l (23-300); POTASSIUM 4.9 mmol/l (3.5-5.1); SGOT/AST 33 u/l (19-48); SODIUM 137 mmol/l (137-146); TOTAL PROTEIN 7.9 g/dL (6.3-8.2)
[2020-06-13 07:06] LABS: ANION GAP 17 (6-22 (CALC)); BILIRUBIN, TOTAL 0.2 mg/dL (0.0-1.4); BUN/CREATININE RATIO 14 (12-20 (CALC)); CARBON DIOXIDE 18 mmol/l (22-30); CREATININE 3.4 mg/dL (0.7-1.3); GFR 17 ML/MIN (>=60 (CALC)); GFR FOR AFR.AMER. 21 ML/MIN (>=60 (CALC))
[2020-06-13 07:13] LABS: MYOGLOBIN 196 ng/mL (0 - 121)
--- NOTE | 2020-06-13 07:37 | NUR ---
ATTEMPTED TO STRAIGHT CATH FOR URINE AFTER GIVEN VERBAL CONSENT, WHEN STRAIGHT CATH WAS ATTEMPTED NO URINE WAS ABLE TO WITHDRAWN. MD AWARE WILL REATTEMPT OR HAVE PT REATTEMPT TO PRODUCE URINE
--- NOTE | 2020-06-13 07:37 | NUR ---
JERRY AND DAYNE ON HOLD UNTIL BC1 ARE DRAWN WILL RESTART ONCE COMPLETED. LAB HAS BEEN CALLED
--- NOTE | 2020-06-13 08:03 | NUR ---
RESTARTED ANTIBIOTICS AFTER SECOND BLOOD CULTURE WAS DONE
--- NOTE | 2020-06-13 08:13 | NUR ---
PT REFUSES TO BE STRAIGHT CATH AT THIS TIME AWARE
--- NOTE | 2020-06-13 09:55 | NUR ---
ATTEMPTED TO RECATH NO SUCCESS AWARE
--- NOTE | 2020-06-13 10:26 | NUR ---
NG TUBE PLACED, WILL AWAIT COMFIRMATION OF NG TUBE PLACEMENT BEFORE INTIATING SUCTION
--- NOTE | 2020-06-13 11:50 | NUR ---
REINSERTED NG TUBE BY MD DANIEL
--- NOTE | 2020-06-13 12:10 | NUR ---
PT WITHOUT DISTRESS
--- NOTE | 2020-06-13 13:06 | NUR ---
ADVANCED NG TUBE FROM 50 MARKED AREA TO 60
--- NOTE | 2020-06-13 13:07 | NUR ---
KATE FLUSHED WITH AIR AND WAS ABLE TO HEAR AIR IN STOMACH AND REPORT WAS CALLED AND GIVEN TO HIRA
--- NOTE | 2020-06-13 13:15 | NUR ---
XRAY IN NOW
--- NOTE | 2020-06-13 13:34 | NUR ---
PT ARRIVED TO [facility] ROOM 280 VIA STRETCHER ACCOMPAINED BY ERT STAFF. PT TRANSFERED FROM STRETCHER TO BED WITH LITTLE DIFFICULTED. INTRODUCED SELF TO PT AND DISCUSSED POC. PT IS A/O X3. ASSESSMENT AND VITALS COMPLETED. RESPIRATIONS ARE EVEN AND UNLABORED ON ROOM AIR. HEART RHYTHM NORMAL WITH TELE IN PLACE, PER ER MONITORING. BOWEL SOUNDS ACTIVE, LAST REPORTED BM 06/12/2020. PT REPORTS OF DIARRHEA.#20G IN LAC FLUSHED, SITE APPEARS HEALTHY AND PATENT. NORMAL SALINE STARTED PER ORDER,. RADIAL PULSES STRONG. PEDAL PULSES WEAK. DISCOLORATION OF BLE NOTED. ABRASION TO RIGHT KNEE. REDNESS TO BUTTOCKS. SKIN REMAINS WARM, DRY AND INTACT. PT COMPLAINS OF 9/10 PAIN. MD TO BE NOTIFIED. NG TUBE INSERTED TO RIGHT NARE. CHECK FOR PLACEMENT AND FLUSHED WITH 10 CC OF WATER. PT TOELRATED WELL. INTERMITTENT SUCTION APPLIED. PT EDUACTED ON NPO STATUS. PT VERBALIZED UNDERSTANDING. PT DENIES OF ANY ALLERGIES, ALLERGY AND FALL RISK BAND APPLIED. PT ORIENTED TO ROOM AND CALL LIGHT SYSTEM.PT DENIES OF ANY NEEDS AT THIS TIME. ALL SAFETY PRECAUTIONS ARE IN PLACE WITH CALL LIGHT IN REACH. WILL CONTINUE TO MONITOR.
[2020-06-13 13:40] VITALS: BP 136/63
--- NOTE | 2020-06-13 13:40 | NUR ---
PT TRANSPORTED TO MED SURG AT THIS TIME AND CARE RELINQUISHED TO HIRA NORMAN. Admission Note Report Given to: HIRA Transported by: Wheelchair X Stretcher Transported with: X Nurse Transporter X Patent IV O2 X Multimedia Producer Location: ICU X MS2
--- NOTE | 2020-06-13 15:34 | NUR ---
PT REQUESTED TO CALL AND UPDATE. UPDATED OF PT STATUS OF THIS TIME. TRANSFER PHONE CALL INTO ROOM.
--- NOTE | 2020-06-13 16:25 | NUR ---
PT RESTING IN SEMI FOWLERS POSITION. RESPIRATIONS ARE EVEN AND UNLABORED ON ROOM AIR. IVF INFUSING PER ORDER, SITE APPEARS HEALTHY AND PATENT.NG TUBE IN PLACE, INTERMITTENT SUCTION APPLIED. ORDER FOR MORPHINE OBTAINED FOR BACK PAIN RESULTING IN 02/26. WAITING FOR PHARMACY TO VERIFY.TELE MONITORING IN PLACE. PT DENIES OF ANY NEEDS AT THIS TIME. ALL SAFETY AND ISOLATION PRECAUTIONS ARE IN PLACE WITH CALL LIGHT IN REACH. WILL CONTINUE TO MONITOR
--- NOTE | 2020-06-13 16:40 | NUR ---
PT CALL FOR HELP STANDING TO URINATE. PT REQUEST TO SIT ON BEDSIDE COMMODE FOR A FEW MINUETS. NO URINE OBTAIN. PT STATES " IT DOESNT FEEL LIKE I HAVE TO GO ANYMORE.
--- NOTE | 2020-06-13 17:00 | NUR ---
BLADDER SCAN COMPLETED DUE TO PT NOT VOIDING AND UNSUCCESSFUL STRAIGHT CATH RESULTING IN 683. PT STATES HE DOES NOT HAVE URGE TO GO. MD TO BE NOTFIED.
--- NOTE | 2020-06-13 17:45 | NUR ---
#22G COUDE CATHATER PLACED. PT TOLERATED WELL. 500 OF ALICIA COLORED URINE OBTAINED. LEG STRAP PLACED. TUBING UNKINKED FLOWING WITH GRAVITY. ALL SAFETY PRECAUTIONS ARE IN PLAE WITH CALL LIGHT IN REACH. WILL CONTINUE TO MONITOR
[2020-06-13 18:04] LABS: URINE BILIRUBIN - DIPSTICK NEGATIVE (NEGATIVE); URINE BLOOD DIPSTICK SMALL (NEGATIVE); URINE COLOR YELLOW; URINE GLUCOSE - DIPSTICK NEGATIVE (NEGATIVE); URINE KETONE NEGATIVE (NEGATIVE); URINE LEUK ESTERASE NEGATIVE (NEGATIVE); URINE NITRITE - DIPSTICK NEGATIVE (Negative); URINE PH 5.5 (4.5-8.0); URINE PROTEIN - DIPSTICK TRACE mg/dL (NEG-TRACE); URINE SPECIFIC GRAVITY 1.025; URINE UROBILINOGEN - DIPSTICK 0.2 E.U./dL (0.2)
[2020-06-13 18:14] LABS: URINE SQUAMOUS EPITHELIAL CELL FEW EPI/hpf (0-FEW); URINE WBC 0-2 WBC/hpf (0-5)
[2020-06-13 19:00] VITALS: BP 157/70
--- NOTE | 2020-06-13 19:09 | NUR ---
REPORT FROM SAGE NORMAN. ASSUMED PT CARE.
--- NOTE | 2020-06-13 21:30 | NUR ---
PT MEDICATED ORDERED. NO APPARENT DISTRESS NOTED. PT ALERT AND ORIENTED. C/O SOME DISCOMFORT FROM NG TUBE IN THROAT. NG NOTED TO LEFT NARE, TO LIS. SMALL AMOUNT OF BILE NOTED IN TUBING NOTHING IN CANISTER AT THIS TIME. IV SITE APPEARS HEALTHY WITH IVF INFUSING. IV ABT INITIATED. DISCUSSED POC. PT VERBALIZED UNDERSTANDING. SOW MANAGER IN PLACE. [place] PATENT DRAINING TO GRAVITY. PT DENIES ANY CURRENT WANTS OR NEEDS. MOUTH SWAB OFFERED. CALL LIGHT WITHIN REACH. WILL CONTINUE TO MONITOR.
--- NOTE | 2020-06-13 21:30 | NUR ---
PT MEDICATED ORDERED. NO APPARENT DISTRESS NOTED. PT ALERT AND ORIENTED. C/O SOME DISCOMFORT FROM NG TUBE IN THROAT. NG NOTED TO RIGHT NARE, TO LIS. SMALL AMOUNT OF BILE NOTED IN TUBING NOTHING IN CANISTER AT THIS TIME. IV SITE APPEARS HEALTHY WITH IVF INFUSING. IV ABT INITIATED. DISCUSSED POC. PT VERBALIZED UNDERSTANDING. DIRECTOR OF SOFTWARE DEVELOPMENT IN PLACE. [place] PATENT DRAINING TO GRAVITY. PT DENIES ANY CURRENT WANTS OR NEEDS. MOUTH SWAB OFFERED. CALL LIGHT WITHIN REACH. WILL CONTINUE TO MONITOR.
--- NOTE | 2020-06-13 21:30 | NUR ---
PT MEDICATED ORDERED. NO APPARENT DISTRESS NOTED. PT ALERT AND ORIENTED. C/O SOME DISCOMFORT FROM NG TUBE IN THROAT. NG NOTED TO LEFT NARE, TO LIS. SMALL AMOUNT OF BILE NOTED IN TUBING NOTHING IN CANISTER AT THIS TIME. IV SITE APPEARS HEALTHY WITH IVF INFUSING. IV ABT INITIATED. DISCUSSED POC. PT VERBALIZED UNDERSTANDING. MI[employer]FT EXCHANGE ARCHITECT IN PLACE. PT DENIES ANY CURRENT WANTS OR NEEDS. MOUTH SWAB OFFERED. CALL LIGHT WITHIN REACH. WILL CONTINUE TO MONITOR.
[2020-06-14 00:21] VITALS: BP 142/64
--- NOTE | 2020-06-14 01:24 | NUR ---
PT RESTING IN BED WITH EYES CLOSED. RESPIRATIONS EVEN AND UNLABORED. NO APPARENT DISTRESS NOTED. METROLOGY TECHNICIAN IN PLACE. IVF INFUSING WITHOUT DIFFICULTY. NG TO RIGHT NARE TO LIS. CALL LIGHT WITHIN REACH. WILL CONTINUE TO MONITOR.
--- NOTE | 2020-06-14 02:53 | NUR ---
PT NOTED RESTING IN BED. NO APPARENT DISTRESS NOTED. NG OUTPUT UNCHANGED SINCE BEGINNING OF SHIFT. IV SITE APPEARS HEALTHY. NEW BAG OF FLUIDS HUNG. THROAT LOZENGE PROVIDED UPON REQUEST FOR THROAT DISCOMFORT FROM NG TUBE. ARNOLDO REMAINS PATENT. PT DENIES ANY OTHER CURRENT WANTS OR NEEDS. CALL LIGHT WITHIN REACH. WILL CONTINUE TO MONITOR.
[2020-06-14 04:00] VITALS: BP 143/65
[2020-06-14 07:19] VITALS: BP 156/69
--- NOTE | 2020-06-14 07:19 | NUR ---
RECIEVED REPORT FROM EMERSON CARDOZO. PT RESTING IN SEMI FOWLERS POSITION UPON ENTERING ROOM. INTRODUCED SELF TO PT AND DISCUSSED POC. PT IS A/O X3. ASSESSMENT AND VITALS COMPLETED. RESPIRATIONS ARE EVEN AND UNLABORED ON ROOM AIR. HEART RHYTHM IN PLACE, SR WITH PAC PER ER MONITORING. PACEMAKER PRESENT. BOWEL SOUNDS ACTIVE IN ALL QUADRANTS, LAST REPORTED BM 06/12/2020. RADIAL PULSES STRONG. PEDAL PULSES WEAK. #20G IN LAC RUNNING WITH IVF PER ORDER, SITE APPEARS HEALTHY AND PATENT. PT EDUCATED ON NEED OF CHANGING IF NOT DSCHARGED PT VERBALIZED UNDERSTANDING. PT COMPLAINS OF 8/10 PAIN IN BACK. OFFERED MIRPHINE, PT REFUSED. NPO STATUS REMAINS AT THIS TIME. NPO TUBE IN RIGHT NARE. PLACEMENT CHECKED AND FLUSHED. INTERMITTENT LOW. [place] CATHATER IN PLACE, CLEAR YELLOW URINE EMPTIED. TUBING UNKINKED FLOWING WITH GRAVITY. SKIN WAMR DRY AND INTACT. REDNESS NOTED TO BUTTOCKS. HEAL PROTECTORS APPLIED. PT DENIES OF ANY NEEDS AT THIS TIME. ALL SAFETY PRECAUTIONS ARE IN PLACE WITH CALL LIGHT IN REACH. WILL CONTINUE TO MONITOR
[2020-06-14 09:41] LABS: HEMATOCRIT 22.6 % (39.0-50.0); HEMOGLOBIN 7.2 g/dl (14.0-18.0); MEAN CELL VOLUME 91.1 fL CALC (80.0-100.0); MEAN CORPUSCULAR HGB CONC 31.9 g/dL CAL (32.0-36.0); RED BLOOD COUNT 2.48 mill/uL (4.70-6.10); RED CELL DISTRI WIDTH 16.3 % (11.5-15.5)
--- NOTE | 2020-06-14 09:57 | NUR ---
PT TRANSFERED TO XR IN STABLE CONDITION ACCOMPAINED BY SANDRO BERRY VIA WHEELCHAIR
[2020-06-14 10:20] LABS: BILIRUBIN, TOTAL 0.2 mg/dL (0.0-1.4); POTASSIUM 4.6 mmol/l (3.5-5.1)
[2020-06-14 10:27] LABS: ALBUMIN 2.5 g/dL (3.2-5.0); CREATININE 2.1 mg/dL (0.7-1.3); TOTAL PROTEIN 6.1 g/dL (6.3-8.2)
[2020-06-14 11:18] VITALS: BP 158/61
--- NOTE | 2020-06-14 11:28 | NUR ---
NG TUBE REMOVED ORDERED. PT TOLERATED WELL. RESPIRATIONS REMAINS EVEN AND UNLABORED ON ROOM AIR. TELE MONITORING IN PLACE. WATER ADMINISTERED, PT TOELRATED WELL. PT DENIES OF ANY PAINS OR NEEDS AT THIS TIME. ALL SAFETY PRECAUTIONS ARE IN PLACE WITH CALL LIGHT IN REACH. WILL CONTINUE TO MONITOR
[2020-06-14 15:40] VITALS: BP 152/63
--- NOTE | 2020-06-14 15:45 | NUR ---
PT RESTING IN SEMI FOWLERS POSITION. RESPIRATIONS ARE EVEN AND UNLABORED ON ROOM AIR. IVF INFUSING PER ORDER, SITE APPEARS HEALTHY AND PATENT. [place] CATHATER IN PLACE, TUBING UNKINKED.TELE MONITORING IN PLACE. PT DENIES OF ANY PAINS OR DISCOMFORTS AT THIS TIME. ALL SAFETY PRECAUTIONS ARE IN PLACE WITH CALL LIGHT IN REACH. WILL CONTINUE TO MONITOR
--- NOTE | 2020-06-14 16:17 | NUR ---
NEW #20G IN RAC, SITE APPEARS HEALTHY AND PATENT. #20G IN LAC REMOEVD WITH CATHATER STILL INTACT. PT TOELRATED WELL.
--- NOTE | 2020-06-14 19:04 | NUR ---
REPORT FROM SAGE NORMAN. ASSUME PT CARE.
[2020-06-14 19:09] VITALS: BP 144/65
--- NOTE | 2020-06-14 20:06 | NUR ---
PT NOTED RESTING IN BED, WAKES EASILY. ALERT AND ORIENTED. PT DENIES ANY PAIN OR DISCOMFORT. RESPIRATIONS EVEN AND UNLABORED. [place] PATENT DRAINING TO GRAVITY. IV SITE APPEARS HEALTHY WITH IVF INFUSING. DISCUSSED POC. PT VERBALIZED UNDERSTANDING. NO CURRENT WANTS OR NEEDS. CALL LIGHT WITHIN REACH. WILL CONTINUE TO MONITOR.
--- NOTE | 2020-06-15 00:15 | NUR ---
PT NOTED RESTING IN BED. NO APPARENT DISTRESS NOTED. RESPIRATIONS EVEN AND UNLABORED. VSS. [place] REMAINS PATENT DRAINING TO GRAVITY. REPOSITIONED PT IN BED. NO OTHER WANTS OR NEEDS. DENIES ANY PAIN OR DISCOMFORT. CALL LIGHT WITHIN REACH. WILL CONTINUE TO MONITOR.
[2020-06-15 00:18] VITALS: BP 127/58
[2020-06-15 04:37] VITALS: BP 132/51
[2020-06-15 06:17] LABS: HEMATOCRIT 21.7 % (39.0-50.0); HEMOGLOBIN 7.1 g/dl (14.0-18.0); MEAN CORPUSCULAR HGB 29.5 pG CALC (26.0-32.0); MEAN CORPUSCULAR HGB CONC 32.7 g/dL CAL (32.0-36.0); RED BLOOD COUNT 2.41 mill/uL (4.70-6.10); RED CELL DISTRI WIDTH 15.8 % (11.5-15.5)
[2020-06-15 06:30] LABS: CREATININE 1.8 mg/dL (0.7-1.3); POTASSIUM 4.9 mmol/l (3.5-5.1)
--- NOTE | 2020-06-15 07:00 | NUR ---
REPORT RECEIVED FROM EMERSON LIU.
--- NOTE | 2020-06-15 07:12 | NUR ---
PT note Patient is screened for PT intervention and may benefit from consult for improving mobilization and decreasing his burden of care if medical agrees
[2020-06-15 09:10] VITALS: BP 106/52
--- NOTE | 2020-06-15 09:10 | NUR ---
PT RESTING IN SEMI FOWLERS POSITION,A&O X3;VS OBTAINED AND ASSESSMENT COMPLETED;PT DENIES ANY CURRENT PAIN OE DISCOMFORTS,PAIN SCALE AND REPORTING EDUCATED;RESPIRATIONS EVEN AND UNLABORED ON RA,CLEAR LUNG SOUNDS;ABDOMEN SOFT ON PALPATION AND ACTIVE IN ALL 4 QUADRANTS;[place] CATHETER INTACT DRAINING CLEAR/YELLOW URINE TO GRAVITY, STAT LOCK NOTED RIGHT THIGH;WEAK PEDAL PULSES;SCAB NOTED TO RT KNEE,AUTOMOBILE BRAKES BONDER;#20G TO RAC INFUSING IV FLUIDS WITH EASE PER ORDER;TELE MONITORING IN PLACE;ACCUCHECK 115, NO COVERAGE NEEDED;CLEAR LIQUID DIET REINFORCED;PT DENIES ANY ADDITIONAL NEEDS AND IS ENCOURAGED TO CALL FOR ASSISTANCE IF NEEDED;FALL PRECAUTIONS IN PLACE WITH BED IN THE LOWEST POSITION AND CALL LIGHT IN REACH;WILL CONTINUE TO MONITOR
--- NOTE | 2020-06-15 09:16 | NUR ---
AT BEDSIDE DISCUSSING POC WITH PT.
--- NOTE | 2020-06-15 09:20 | NUR ---
PT REPOSITIONE INTO RECLINER WITH X1 ASSIST AND WALKER, PT TOLERATED TRANSFER WELL;CALL LIGHT IN REACH;WILL CONTINUE TO MONITOR
[2020-06-15 10:30] VITALS: BP 146/59
--- NOTE | 2020-06-15 11:30 | NUR ---
PT RESTING IN SEMI FOWLERS POSIITON;RESPIRATIONS REMAIN EVEN AND UNLABORED ON RA;PT DENIES ANY CURRENT PAIN OR DISCOMFORTS;IV SITE PATENT AND IVF CHANGED TO LR @ 70ML/HR PER ORDER;ACCUCHECK 253, PT COVERED WITH SLIDING SCALE INSULIN PER ORDER;DIET ADVANCED TO SOFT;[place] CATHETER REMOVED AT THIS TIME AND PT TOLERATED WELL;TELE MONITORING IN PLACE;PT DENIES ANY ADDITIONAL NEEDS AT THIS TIME AND IS ENCOURAGED TO CALL FOR ASSISTANCE IF NEEDED;FALL PRECAUTIONS REMAIN IN PLACE WITH BED IN THE LOWEST POSITION AND CALL LIGHT IN REACH;WILL CONTINUE TO MONITOR
--- NOTE | 2020-06-15 13:30 | NUR ---
PHYSICAL THERAPY AT BEDSIDE
[2020-06-15 15:00] VITALS: BP 145/68
--- NOTE | 2020-06-15 15:55 | NUR ---
PT RESTING IN SEMI FOWLERS POSITION;RESPIRATIONS EVEN AND UNLABORED ON RA;PT DENIES ANY CURRENT PAIN OR DISCOMFORTS;TELE MONITORING IN PLACE;IV FLUIDS INFUSING WITH EASE TO RAC;URINAL EMPTIED OF 300CC OF YELLOW URINE;PT DENIES ANY ADDITIONAL NEEDS AND IS ENCOURAGED TO CALL FOR ASSISTANCE IF NEEDED;CALL LIGHT IN REACH;WILL CONTINUE TO MONITOR
--- NOTE | 2020-06-15 19:10 | NUR ---
REPORT RECEIVED FROM Sudarshan CALDWELL LPN, CARE OF PT ASSUMED AT THIS TIME.
[2020-06-15 19:40] VITALS: BP 151/70
--- NOTE | 2020-06-15 21:10 | NUR ---
PT AWAKE, LAYING IN BED, STATES HE JUST GOT UP TO USE THE BATHROOM, 50ML CLEAR YELLOW URINE EMPTIED FROM URINAL. BSC EMPTY. PHYSICAL ASSESMENT COMPLETE. OFFERED PT PAIN MEDICATION, PT DECLINES, REPORTS "I TAKE OXY AT HOME, BUT THAT WILL CONSTIPATE ME." EDUCATION PROVIDED REGARDING OPIATE ANALGESICS AND CONSTIPATION. SCHEDULED MEDICATIONS ADMINISTERED. PLAN OF CARE REVIEWED, PT VERBALIZES UNDERSTANDING AND DENIES QUESTIONS. DENIES ANY NEEDS AT THIS TIME WHEN ASKED. CALL FIELD WITHIN REACH, AGREES TO CALL PRN.
--- NOTE | 2020-06-16 00:10 | NUR ---
PT LAYING IN BED WITH EYES CLOSED, NO APPARENT DISTRESS, APPEARS TO BE SLEEPING COMFORTABLY. RESPIRATIONS REGULAR AND UNLABORED. CALL FIELD REMAINS WITHIN REACH.
[2020-06-16 04:00] VITALS: BP 143/69
--- NOTE | 2020-06-16 04:14 | NUR ---
PT LAYING IN BED WITH EYES CLOSED, NO APPARENT DISTRESS, APPEARS TO BE SLEEPING COMFORTABLY. RESPIRATIONS REGULAR AND UNLABORED. CALL FIELD REMAINS WITHIN REACH.
[2020-06-16 05:27] LABS: HEMATOCRIT 22.9 % (39.0-50.0); HEMOGLOBIN 7.6 g/dl (14.0-18.0); IMMATURE GRANULOCYTES 0.5 % (0.0-5.0); MEAN CELL VOLUME 88.8 fL CALC (80.0-100.0); MEAN CORPUSCULAR HGB 29.5 pG CALC (26.0-32.0); MEAN CORPUSCULAR HGB CONC 33.2 g/dL CAL (32.0-36.0); NEUT# 1.64 thou/uL (1.82-7.42); RED BLOOD COUNT 2.58 mill/uL (4.70-6.10); RED CELL DISTRI WIDTH 15.9 % (11.5-15.5)
[2020-06-16 05:50] LABS: ALBUMIN 2.6 g/dL (3.2-5.0); CREATININE 1.9 mg/dL (0.7-1.3); POTASSIUM 5.1 mmol/l (3.5-5.1); TOTAL PROTEIN 6.3 g/dL (6.3-8.2)
[2020-06-16 05:54] LABS: BILIRUBIN, TOTAL 0.4 mg/dL (0.0-1.4)
[2020-06-16 10:50] VITALS: BP 152/71
[2020-06-16 15:00] VITALS: BP 143/62
[2020-06-16] MEDS ORDERED: AUGMENTIN500TAB PO (15:17)
== END 2020-06-16 16:19 | disposition home health service (06) | DRG 389 ==
LOC: ED 06:05 → ED-I 11:09 → MS2 11:09
PROVIDERS: Emergency Medicine; Nurse Practitioner; ADMIT Internal Medicine; ATTEND Internal Medicine
PROC: 0T9B70Z Drainage of Bladder with Drainage Device, Via Natural or Artificial Opening (ICD-10-PCS; principal; 2020-06-14)
DX: K56.7 Ileus, unspecified (principal); C90.00 Multiple myeloma not having achieved remission; N17.9 Acute kidney failure, unspecified; T85.528A Displacement of other gastrointestinal prosthetic devices, implants and grafts, initial encounter; K52.9 Noninfective gastroenteritis and colitis, unspecified; E86.0 Dehydration; F55.2 Abuse of laxatives; I25.10 Atherosclerotic heart disease of native coronary artery without angina pectoris; E11.22 Type 2 diabetes mellitus with diabetic chronic kidney disease; I12.9 Hypertensive chronic kidney disease with stage 1 through stage 4 chronic kidney disease, or unspecified chronic kidney disease; N18.9 Chronic kidney disease, unspecified; I48.0 Paroxysmal atrial fibrillation; R33.9 Retention of urine, unspecified; Y65.8 Other specified misadventures during surgical and medical care; Z79.4 Long term (current) use of insulin; Z95.1 Presence of aortocoronary bypass graft; Z95.0 Presence of cardiac pacemaker; Z79.899 Other long term (current) drug therapy; Z95.5 Presence of coronary angioplasty implant and graft; Z79.01 Long term (current) use of anticoagulants; Z20.828 Contact with and (suspected) exposure to other viral communicable diseases

== ENCOUNTER 2020-07-07 07:58 | Inpatient (IN) | payer MEDICARE ==
[~2020-07-07] VITALS: Ht 152.4 cm; Wt 76.7 kg
[2020-07-07] VITALS (19 sets, daily range): BP systolic 87–140; BP diastolic 57–104
[~2020-07-07 07:58] MED LIST changes: +AUGMENTIN500TAB PO
[2020-07-07 08:21] LABS: IMMATURE GRANULOCYTES 1.3 % (0.0-5.0); MEAN CELL VOLUME 91.3 fL CALC (80.0-100.0); MEAN CORPUSCULAR HGB 29.7 pG CALC (26.0-32.0); MEAN CORPUSCULAR HGB CONC 32.5 g/dL CAL (32.0-36.0); NEUT# 5.48 thou/uL (1.82-7.42); RED BLOOD COUNT 3.23 mill/uL (4.70-6.10); RED CELL DISTRI WIDTH 15.7 % (11.5-15.5)
[2020-07-07 08:23] LABS: HEMATOCRIT 29.5 % (39.0-50.0); HEMOGLOBIN 9.6 g/dl (14.0-18.0)
[2020-07-07 08:41] LABS: ALKALINE PHOSPHATASE 80 u/l (38-126); AMYLASE 125 u/l (30-110); ANION GAP 19 (6-22 (CALC)); CARBON DIOXIDE 15 mmol/l (22-30); CHLORIDE 106 mmol/l (95-108); CREATININE 1.7 mg/dL (0.7-1.3); ETHYL ALCOHOL 0 mg/dl (0-30); GFR 38 ML/MIN (>=60 (CALC)); GFR FOR AFR.AMER. 47 ML/MIN (>=60 (CALC)); LIPASE 262 u/l (23-300); MAGNESIUM 1.5 mg/dL (1.6-2.3); POTASSIUM 4.3 mmol/l (3.5-5.1); SGOT/AST 33 u/l (19-48); SODIUM 135 mmol/l (137-146)
[2020-07-07 08:50] LABS: ALBUMIN 3.7 g/dL (3.2-5.0); BILIRUBIN, TOTAL 0.6 mg/dL (0.0-1.4); BUN 45 mg/dL (8-23); BUN/CREATININE RATIO 26 (12-20 (CALC)); TOTAL PROTEIN 7.6 g/dL (6.3-8.2)
[2020-07-07 09:12] LABS: D-DIMER 8.11 mg/L (0.19-0.60)
[2020-07-07 09:29] LABS: ACT PARTIAL THROMBO TIME 23.8 SECONDS (20.0-32.5); INTERNATIONAL NORMALIZED RATIO 1.1 RATIO (0.7-1.3); PROTHROMBIN TIME 11.3 SECONDS (9.0-12.5)
[2020-07-07 15:21] LABS: URINE BILIRUBIN - DIPSTICK NEGATIVE (NEGATIVE); URINE BLOOD DIPSTICK LARGE (NEGATIVE); URINE COLOR YELLOW; URINE GLUCOSE - DIPSTICK NEGATIVE (NEGATIVE); URINE KETONE NEGATIVE (NEGATIVE); URINE LEUK ESTERASE NEGATIVE (NEGATIVE); URINE NITRITE - DIPSTICK NEGATIVE (Negative); URINE PROTEIN - DIPSTICK TRACE mg/dL (NEG-TRACE); URINE SPECIFIC GRAVITY 1.025; URINE UROBILINOGEN - DIPSTICK 0.2 E.U./dL (0.2)
[2020-07-07 15:33] LABS: URINE WBC 0-2 WBC/hpf (0-5)
[2020-07-08] VITALS (13 sets, daily range): BP systolic 110–161; BP diastolic 60–80
[2020-07-08 06:16] LABS: HEMATOCRIT 24.6 % (39.0-50.0); MEAN CELL VOLUME 90.1 fL CALC (80.0-100.0); MEAN CORPUSCULAR HGB 29.3 pG CALC (26.0-32.0); MEAN CORPUSCULAR HGB CONC 32.5 g/dL CAL (32.0-36.0); NEUT# 1.8 thou/uL (1.82-7.42); RED BLOOD COUNT 2.73 mill/uL (4.70-6.10); RED CELL DISTRI WIDTH 15.7 % (11.5-15.5)
[2020-07-08 06:37] LABS: CHOLESTEROL HDL RATIO 4.4 (<4.4 (CALC)); CREATININE 1.6 mg/dL (0.7-1.3); POTASSIUM 4.4 mmol/l (3.5-5.1)
[2020-07-08 06:41] LABS: ALBUMIN 2.5 g/dL (3.2-5.0); BILIRUBIN, TOTAL 0.3 mg/dL (0.0-1.4); TOTAL PROTEIN 5.7 g/dL (6.3-8.2)
[2020-07-09] VITALS (11 sets, daily range): BP systolic 106–134; BP diastolic 64–92
[2020-07-09 06:11] LABS: HEMATOCRIT 24.9 % (39.0-50.0); MEAN CELL VOLUME 90.9 fL CALC (80.0-100.0); MEAN CORPUSCULAR HGB 29.2 pG CALC (26.0-32.0); MEAN CORPUSCULAR HGB CONC 32.1 g/dL CAL (32.0-36.0); RED BLOOD COUNT 2.74 mill/uL (4.70-6.10); RED CELL DISTRI WIDTH 15.8 % (11.5-15.5)
[2020-07-09 06:41] LABS: CREATININE 1.6 mg/dL (0.7-1.3); POTASSIUM 4.5 mmol/l (3.5-5.1)
[2020-07-10] VITALS (12 sets, daily range): BP systolic 80–132; BP diastolic 54–92
[2020-07-10 08:34] LABS: HEMATOCRIT 27.3 % (39.0-50.0); HEMOGLOBIN 8.9 g/dl (14.0-18.0); MEAN CELL VOLUME 89.2 fL CALC (80.0-100.0); MEAN CORPUSCULAR HGB 29.1 pG CALC (26.0-32.0); MEAN CORPUSCULAR HGB CONC 32.6 g/dL CAL (32.0-36.0); RED BLOOD COUNT 3.06 mill/uL (4.70-6.10); RED CELL DISTRI WIDTH 15.9 % (11.5-15.5)
[2020-07-10 08:50] LABS: ALBUMIN 2.6 g/dL (3.2-5.0); CREATININE 1.5 mg/dL (0.7-1.3); POTASSIUM 4.4 mmol/l (3.5-5.1); TOTAL PROTEIN 5.9 g/dL (6.3-8.2)
[2020-07-10 08:52] LABS: BILIRUBIN, TOTAL 0.5 mg/dL (0.0-1.4)
[2020-07-11] VITALS (8 sets, daily range): BP systolic 101–165; BP diastolic 54–81
[2020-07-11 05:31] LABS: HEMATOCRIT 26.6 % (39.0-50.0); HEMOGLOBIN 8.6 g/dl (14.0-18.0); MEAN CELL VOLUME 89.6 fL CALC (80.0-100.0); MEAN CORPUSCULAR HGB CONC 32.3 g/dL CAL (32.0-36.0); RED BLOOD COUNT 2.97 mill/uL (4.70-6.10); RED CELL DISTRI WIDTH 15.9 % (11.5-15.5)
[2020-07-11 05:38] LABS: ALBUMIN 2.5 g/dL (3.2-5.0); BILIRUBIN, TOTAL 0.5 mg/dL (0.0-1.4); CREATININE 1.5 mg/dL (0.7-1.3); POTASSIUM 4.3 mmol/l (3.5-5.1); TOTAL PROTEIN 5.7 g/dL (6.3-8.2)
[2020-07-12 05:00] VITALS: BP 142/63
[2020-07-12 06:03] LABS: HEMATOCRIT 24.2 % (39.0-50.0); HEMOGLOBIN 8.1 g/dl (14.0-18.0); MEAN CELL VOLUME 88.3 fL CALC (80.0-100.0); MEAN CORPUSCULAR HGB 29.6 pG CALC (26.0-32.0); MEAN CORPUSCULAR HGB CONC 33.5 g/dL CAL (32.0-36.0); RED BLOOD COUNT 2.74 mill/uL (4.70-6.10); RED CELL DISTRI WIDTH 15.8 % (11.5-15.5)
[2020-07-12 06:28] LABS: ALBUMIN 2.5 g/dL (3.2-5.0); BILIRUBIN, TOTAL 0.4 mg/dL (0.0-1.4); CREATININE 1.5 mg/dL (0.7-1.3); POTASSIUM 4.9 mmol/l (3.5-5.1); TOTAL PROTEIN 5.6 g/dL (6.3-8.2)
[2020-07-12 08:13] VITALS: BP 160/82
[2020-07-12 10:12] VITALS: BP 146/63
[2020-07-12] MEDS ORDERED: TOPROL XL50 MG PO (11:28)
[2020-07-12 12:30] VITALS: BP 127/61
[2020-07-12 14:20] VITALS: BP 169/77
== END 2020-07-12 14:50 | disposition home or self-care (01) | DRG 872 ==
LOC: ED 07:58 → ED-I 10:00 → ED 10:10 → ICU 10:11
PROVIDERS: Nurse Practitioner; Nurse Practitioner Family; ADMIT Internal Medicine; ATTEND Internal Medicine
PROC: 0T9B70Z Drainage of Bladder with Drainage Device, Via Natural or Artificial Opening (ICD-10-PCS; principal; 2020-07-07)
DX: A41.9 Sepsis, unspecified organism (principal); S22.080A Wedge compression fracture of T11-T12 vertebra, initial encounter for closed fracture; N17.9 Acute kidney failure, unspecified; C90.00 Multiple myeloma not having achieved remission; E87.2 Acidosis; I24.8 Other forms of acute ischemic heart disease; R65.20 Severe sepsis without septic shock; I48.0 Paroxysmal atrial fibrillation; I12.9 Hypertensive chronic kidney disease with stage 1 through stage 4 chronic kidney disease, or unspecified chronic kidney disease; E11.22 Type 2 diabetes mellitus with diabetic chronic kidney disease; N18.30 Chronic kidney disease, stage 3 unspecified; D64.9 Anemia, unspecified; I95.9 Hypotension, unspecified; E86.0 Dehydration; E83.42 Hypomagnesemia; I25.10 Atherosclerotic heart disease of native coronary artery without angina pectoris; E11.51 Type 2 diabetes mellitus with diabetic peripheral angiopathy without gangrene; M62.562 Muscle wasting and atrophy, not elsewhere classified, left lower leg; M62.561 Muscle wasting and atrophy, not elsewhere classified, right lower leg; L89.620 Pressure ulcer of left heel, unstageable; L89.610 Pressure ulcer of right heel, unstageable; E03.9 Hypothyroidism, unspecified; K59.00 Constipation, unspecified; M25.562 Pain in left knee; W19.XXXA Unspecified fall, initial encounter; Y92.002 Bathroom of unspecified non-institutional (private) residence as the place of occurrence of the external cause; Z91.81 History of falling; Z95.1 Presence of aortocoronary bypass graft; Z79.899 Other long term (current) drug therapy; Z79.4 Long term (current) use of insulin; Z95.5 Presence of coronary angioplasty implant and graft; Z95.0 Presence of cardiac pacemaker; Z79.01 Long term (current) use of anticoagulants; Z20.822 Contact with and (suspected) exposure to COVID-19
CPT/HCPCS: J3370; J3475

== ENCOUNTER 2020-12-06 10:17 | Emergency (ER) | payer MEDICARE, MEDICAID ==
[~2020-12-06] VITALS: Ht 167.6 cm; Wt 81.0 kg
[~2020-12-06 10:17] MED LIST changes: +TOPROL XL50 MG PO
[2020-12-06] MEDS ORDERED: LOPRESSOR 550 MG/TAB PO (11:03)
[2020-12-06] MEDS ORDERED: LISINOPRIL10 MG PO (11:04)
[2020-12-06] MEDS ORDERED: ATORVASTATIN CA20 MG PO (11:06)
[2020-12-06] MEDS ORDERED: VITAMIN D2 PO (11:07)
[2020-12-06] MEDS ORDERED: LEVOTHYROXIN25 MC1 PO (11:08)
[2020-12-06] MEDS ORDERED: OMEGA 31000 MG PO (11:08)
[2020-12-06] MEDS ORDERED: ROPINIROLE1 MG PO (11:09)
[2020-12-06] MEDS ORDERED: ACYCLOVIR400 MG PO (11:10)
[2020-12-06 12:41] LABS: HEMATOCRIT 31.7 % (39.0-50.0); HEMOGLOBIN 10.7 g/dl (14.0-18.0); IMMATURE GRANULOCYTES 0.9 % (0.0-5.0); MEAN CELL VOLUME 91.9 fL CALC (80.0-100.0); MEAN CORPUSCULAR HGB CONC 33.8 g/dL CAL (32.0-36.0); NEUT# 7.96 thou/uL (1.82-7.42); RED BLOOD COUNT 3.45 mill/uL (4.70-6.10); RED CELL DISTRI WIDTH 12.5 % (11.5-15.5)
[2020-12-06 13:03] LABS: ALBUMIN 3.3 g/dL (3.2-5.0); BILIRUBIN, TOTAL 0.4 mg/dL (0.0-1.4); CREATININE 1.8 mg/dL (0.7-1.3); MAGNESIUM 1.6 mg/dL (1.6-2.3); TOTAL PROTEIN 7.4 g/dL (6.3-8.2)
[2020-12-06 13:10] LABS: POTASSIUM 5.4 mmol/l (3.5-5.1)
[2020-12-06 13:35] VITALS: BP 171/76
== END 2020-12-06 13:35 | disposition short-term general hospital (02) ==
LOC: ED 10:17
PROVIDERS: Emergency Medicine
DX: A41.9 Sepsis, unspecified organism (principal); M72.6 Necrotizing fasciitis; R65.20 Severe sepsis without septic shock; E87.1 Hypo-osmolality and hyponatremia; E87.5 Hyperkalemia; E86.0 Dehydration; E11.65 Type 2 diabetes mellitus with hyperglycemia; N17.9 Acute kidney failure, unspecified; C41.9 Malignant neoplasm of bone and articular cartilage, unspecified; E11.42 Type 2 diabetes mellitus with diabetic polyneuropathy; E11.22 Type 2 diabetes mellitus with diabetic chronic kidney disease; I12.0 Hypertensive chronic kidney disease with stage 5 chronic kidney disease or end stage renal disease; N18.6 End stage renal disease; Z99.2 Dependence on renal dialysis; Z79.899 Other long term (current) drug therapy; Z79.4 Long term (current) use of insulin; Z20.822 Contact with and (suspected) exposure to COVID-19

== ENCOUNTER → 2021-11-22 | Emergency (ER) | payer MEDICARE, MEDICAID ==
[~2021-11-22] MED LIST changes: +ACYCLOVIR400 MG PO; +OMEGA 31000 MG PO; +ROPINIROLE1 MG PO; +VITAMIN D2 PO
--- NOTE | 2021-11-22 18:39 | NUR ---
PT ARRIVED PULSELESS. CPR IN PROGRESS. CONTACTED PTS BRUNO TO DISCUSS PTS CODE STATUS. SPOKE TO BRUNO PTS . INFORMED THAT PT IS A DNR AND DOES WANT TO CONTINUE WITH CPR. TEAM STOPPED CPR PTS PTS 'S. PRONOUNCES. PTS WILL BE DRIVING TO THE HOSPITAL WITH A NEIGHBOR.
== END | disposition expired ==
LOC: ED 18:31
PROC: 5A12012 Performance of Cardiac Output, Single, Manual (ICD-10-PCS; principal; 2021-11-22)
DX: I46.9 Cardiac arrest, cause unspecified (principal); I10 Essential (primary) hypertension; E11.9 Type 2 diabetes mellitus without complications; Z95.1 Presence of aortocoronary bypass graft; Z95.0 Presence of cardiac pacemaker; Z85.830 Personal history of malignant neoplasm of bone; Z92.21 Personal history of antineoplastic chemotherapy; Z79.4 Long term (current) use of insulin; Z66 Do not resuscitate